=== PATIENT | male | born 1960 | race Caucasian/White ===

== ENCOUNTER 2017-09-10 11:06 | Inpatient (IN) | payer BC, OTHER ==
[~2017-09-10] VITALS: Ht 172.7 cm; Wt 67.2 kg
[~2017-09-10 11:06] MED LIST: ASPI325T17 PO; HYDR1TAB12 PO; OLME40TA12 PO
[2017-09-10 11:37] LABS: MICROSCOPIC INDICATED
[2017-09-10] MEDS ORDERED: CEFTRIAXONE PMX 1GM/50ML 50 ML ONE (12:27)
[2017-09-10] MEDS ORDERED: CEFTRIAXONE PMX 1GM/50ML 50 ML IVPB ONE (12:30)
[2017-09-10] MEDS ORDERED: SODIUM CHLORIDE FLUSH 10ML SYR IVF ONE (12:30)
[2017-09-10] MEDS ORDERED: SODIUM CHLORIDE 0.9% 1,000ML IV ONE (12:30)
[2017-09-10 12:39] LABS: ALBUMIN 2.9 g/dL (3.4-5.0); ANION GAP 9 mmol/L (5-15); CALCIUM 8.8 mg/dL (8.5-10.1); CHLORIDE 98 mmol/L (98-107); CREATININE 4.42 mg/dL (0.7-1.3)
[2017-09-10 12:52] LABS: MD YES; MEAN CORPUSCULAR HEMOGLOBIN 29.8 pg (27.5-34.5); MEAN CORPUSCULAR HGB CONC 32.9 g/dL (33.2-36.2); MEAN CORPUSCULAR VOLUME 90.6 fL (81-97); MEAN PLATELET VOLUME 10.5 fL (7.4-10.4); PLATELET COUNT 72 x10^3/uL (130-400); RED BLOOD COUNT 4.48 x10^6/uL (4.38-5.82); RED CELL DISTRIBUTION WIDTH 15.4 % (9.4-14.8)
[2017-09-10 12:54] LABS: <PLATELET ESTIMATE> DECREASED; ANISOCYTOSIS 1+; BAND#(MANUAL) 0.47 x10^3/uL; BANDS%(MANUAL) 3 % (0-7); LARGE PLATELETS 1+; LYMPH#(MANUAL) 0.32 x10^3/uL (1-3.4); LYMPHS% (MANUAL) 2 % (22-44); MONOS#(MANUAL) 0.32 x10^3/uL (0.3-2.7); MONOS% (MANUAL) 2 % (2-9); SEG#(MANUAL) 14.69 x10^3/uL (1.8-6.8); SEGS% (MANUAL) 93 % (42-75)
[2017-09-10] MEDS ORDERED: SODIUM CHLORIDE 0.9% 1,000 ML IV ONE ×2 (13:15→13:18)
[2017-09-10] MEDS ORDERED: LORazepam 2 MG/ML, 1ML ONE (13:18)
[2017-09-10] MEDS ORDERED: SODIUM CHLORIDE FLUSH 10ML SYR IVF PRN (13:30)
[2017-09-10] MEDS ORDERED: LORazepam 2 MG/ML, 1ML IVPush ONE (13:30)
[2017-09-10] MEDS ORDERED: MIDAZOLAM 1 MG/ML, 2ML ONE (13:43)
[2017-09-10] MEDS ORDERED: FENTANYL PF 250 MCG/5ML ONE (13:43)
[2017-09-10] MEDS ORDERED: PROPOFOL 10 MG/ML, 20ML ONE (13:44)
[2017-09-10] MEDS ORDERED: LIDOCAINE-MPF 2% ,5ML ONE (13:44)
[2017-09-10] MEDS ORDERED: SUCCINYLCHOLINE 20 MG/ML, 10ML ONE (13:45)
[2017-09-10] MEDS ORDERED: HYDROmorphone 2 MG/ML, 1ML ONE (13:57)
[2017-09-10] MEDS ORDERED: DOCUSATE 100 MG CAPSULE PO PRN (14:00)
[2017-09-10] MEDS ORDERED: FENTANYL PF 100 MCG/2ML IV PRN (14:00)
[2017-09-10] MEDS ORDERED: PROMETHAZINE 25 MG/ML, 1ML IV PRN (14:00)
[2017-09-10] MEDS ORDERED: hydrALAzine 20 MG/ML, 1ML IV PRN ×2 (14:00)
[2017-09-10] MEDS ORDERED: HYDROmorphone 1 MG/ML, 1ML IV PRN (14:00)
[2017-09-10] MEDS ORDERED: OXYcodone 5 MG/5 ML ORAL.SOL UDC PO PRN (14:00)
[2017-09-10] MEDS ORDERED: ONDANSETRON ODT 4 MG PO PRN (14:00)
[2017-09-10] MEDS ORDERED: POLYETHYLENE GLYCOL 17 GM PACKET PO PRN (14:00)
[2017-09-10] MEDS ORDERED: morphine SULFATE 10 MG/ML, 1ML IVPush PRN (14:00)
[2017-09-10] MEDS ORDERED: ONDANSETRON 2MG/ML, 2ML IVPush PRN ×2 (14:00)
[2017-09-10] MEDS ORDERED: ACETAMINOPHEN 325 MG TABLET PO PRN ×2 (14:00)
[2017-09-10] MEDS ORDERED: MEPERIDINE/PF 25MG/0.5ML IVPush PRN (14:00)
[2017-09-10] MEDS ORDERED: MIDAZOLAM 1 MG/ML, 2ML IV PRN (14:00)
[2017-09-10] MEDS ORDERED: LABETALOL 5MG/ML, 20ML IV PRN (14:00)
[2017-09-10] MEDS ORDERED: PHENYLEPHRINE 10 MG/ML ONE (14:17)
[2017-09-10] MEDS ORDERED: ONDANSETRON 2MG/ML, 2ML ONE (14:32)
[2017-09-10] MEDS ORDERED: DEXAMETHASONE 4 MG/ML, 1ML ONE (14:32)
[2017-09-10] MEDS ORDERED: OMNIPAQUE 350 MG/ML, 50 ML BOTTLE IV ONE (14:44)
[2017-09-10] MEDS ORDERED: LIDOCAINE GEL 2%, 5ML TP ONE (14:46)
[2017-09-10] MEDS ORDERED: OMNIPAQUE 350 MG/ML, 50 ML BOTTLE ONE (14:58)
[2017-09-10] MEDS ORDERED: EPHEDRINE 50 MG/ML, 1ML ONE (15:23)
[2017-09-10] MEDS ORDERED: EPHEDRINE 50 MG/ML, 1ML IVPush PRN (15:30)
[2017-09-10] MEDS ORDERED: LISI30TA4 PO (15:38)
[2017-09-10] MEDS ORDERED: ACETAMINOPHEN 650 MG/20.3 ML UDC ONE (15:50)
[2017-09-10] MEDS ORDERED: OXYcodone 5 MG/5 ML ORAL.SOL UDC ONE (15:51)
[2017-09-10 17:42] VITALS: BP 110/71
[2017-09-10] MEDS ORDERED: HYDROcodone/APAP 5/325 TABLET PO PRN (18:00)
[2017-09-10] MEDS: SODIUM CHLORIDE 0.9% 1,000 ML IV SCH (18:39)
[2017-09-10 23:06] VITALS: BP 106/68
[2017-09-11] MEDS: SODIUM CHLORIDE 0.9% 1,000 ML IV SCH ×4 (01:20→20:38)
[2017-09-11 03:36] VITALS: BP 105/77
[2017-09-11 05:24] LABS: MEAN CORPUSCULAR HEMOGLOBIN 30.1 pg (27.5-34.5); MEAN CORPUSCULAR HGB CONC 32.9 g/dL (33.2-36.2); MEAN CORPUSCULAR VOLUME 91.3 fL (81-97); RED BLOOD COUNT 3.52 x10^6/uL (4.38-5.82); RED CELL DISTRIBUTION WIDTH 15.7 % (9.4-14.8)
[2017-09-11 05:31] LABS: ANION GAP 7 mmol/L (5-15); CALCIUM 7.3 mg/dL (8.5-10.1); CHLORIDE 108 mmol/L (98-107)
[2017-09-11 05:32] LABS: CREATININE 3.67 mg/dL (0.7-1.3)
[2017-09-11 06:00] LABS: MEAN PLATELET VOLUME 11.1 fL (7.4-10.4); PLATELET COUNT 63 x10^3/uL (130-400)
[2017-09-11 06:02] LABS: BASOPHILS % (AUTO) 0 % (0-1); EOSINOPHILS % (AUTO) 0 % (1-7); LYMPHOCYTES # (AUTO) 0.33 x10^3/uL (1-3.4); LYMPHOCYTES % (AUTO) 2 % (22-44); MD SCAN; MONOCYTES # (AUTO) 0.47 x10^3/uL (0.2-0.8); MONOCYTES % (AUTO) 4 % (2-9); NEUTROPHILS # (AUTO) 12.78 x10^3/uL (1.8-6.8); NEUTROPHILS % (AUTO) 94 % (42-75)
[2017-09-11 06:35] VITALS: BP 122/80
[2017-09-11] MEDS ORDERED: SODIUM POLYSTYRENE SULFONATE ORAL SUSP PO ONE (09:00)
[2017-09-11] MEDS: CEFTRIAXONE PMX 1GM/50ML 50 ML IV SCH (12:46)
[2017-09-11 14:08] VITALS: BP 124/79
[2017-09-11] MEDS: HYDROcodone/APAP 5/325 TABLET PO PRN ×2 (14:31→20:38)
[2017-09-11 19:03] VITALS: BP 126/82
[2017-09-12 00:18] VITALS: BP 154/92
[2017-09-12] MEDS: HYDROcodone/APAP 5/325 TABLET PO PRN ×4 (01:59→20:06)
[2017-09-12] MEDS: SODIUM CHLORIDE 0.9% 1,000 ML IV SCH ×3 (04:00→22:15)
[2017-09-12 05:32] LABS: MEAN CORPUSCULAR HEMOGLOBIN 30.3 pg (27.5-34.5); MEAN CORPUSCULAR HGB CONC 33.4 g/dL (33.2-36.2); MEAN CORPUSCULAR VOLUME 90.7 fL (81-97); MEAN PLATELET VOLUME 11.2 fL (7.4-10.4); PLATELET COUNT 70 x10^3/uL (130-400); RED BLOOD COUNT 3.45 x10^6/uL (4.38-5.82); RED CELL DISTRIBUTION WIDTH 16.4 % (9.4-14.8)
[2017-09-12 05:35] LABS: CHLORIDE 114 mmol/L (98-107)
[2017-09-12 05:48] LABS: ALANINE AMINOTRANSFERASE 17 U/L (12-78); ALBUMIN 1.9 g/dL (3.4-5.0); ALKALINE PHOSPHATASE 98 U/L (45-117); ANION GAP 7 mmol/L (5-15); BILIRUBIN,TOTAL 0.3 mg/dL (0.2-1.0); CALCIUM 7.5 mg/dL (8.5-10.1); CREATININE 2.56 mg/dL (0.7-1.3); TOTAL PROTEIN 5.2 g/dL (6.4-8.2)
[2017-09-12 06:38] LABS: BASOPHILS % (AUTO) 0 % (0-1); EOSINOPHILS # (AUTO) 0.01 x10^3/uL (0-0.4); EOSINOPHILS % (AUTO) 0 % (1-7); LYMPHOCYTES # (AUTO) 0.68 x10^3/uL (1-3.4); LYMPHOCYTES % (AUTO) 5 % (22-44); MD SCAN; MONOCYTES # (AUTO) 0.65 x10^3/uL (0.2-0.8); MONOCYTES % (AUTO) 4 % (2-9); NEUTROPHILS # (AUTO) 13.54 x10^3/uL (1.8-6.8); NEUTROPHILS % (AUTO) 91 % (42-75)
[2017-09-12 07:18] VITALS: BP 134/79
[2017-09-12] MEDS: CEFTRIAXONE PMX 1GM/50ML 50 ML IV SCH (12:54)
[2017-09-12 13:42] VITALS: BP 151/91
[2017-09-12 18:45] VITALS: BP 156/84
[2017-09-13] MEDS: HYDROcodone/APAP 5/325 TABLET PO PRN ×3 (00:57→10:56)
[2017-09-13 01:06] VITALS: BP 163/89
[2017-09-13] MEDS: SODIUM CHLORIDE 0.9% 1,000 ML IV SCH ×2 (04:36→10:57)
[2017-09-13 05:12] LABS: CHLORIDE 113 mmol/L (98-107)
[2017-09-13 05:14] LABS: BASOPHILS % (AUTO) 0 % (0-1); EOSINOPHILS # (AUTO) 0.02 x10^3/uL (0-0.4); EOSINOPHILS % (AUTO) 0 % (1-7); LYMPHOCYTES # (AUTO) 0.58 x10^3/uL (1-3.4); LYMPHOCYTES % (AUTO) 6 % (22-44); MD NO; MEAN CORPUSCULAR HEMOGLOBIN 30.4 pg (27.5-34.5); MEAN CORPUSCULAR HGB CONC 33.9 g/dL (33.2-36.2); MEAN CORPUSCULAR VOLUME 89.6 fL (81-97); MEAN PLATELET VOLUME 10.1 fL (7.4-10.4); MONOCYTES # (AUTO) 0.87 x10^3/uL (0.2-0.8); MONOCYTES % (AUTO) 8 % (2-9); NEUTROPHILS # (AUTO) 8.87 x10^3/uL (1.8-6.8); NEUTROPHILS % (AUTO) 86 % (42-75); PLATELET COUNT 102 x10^3/uL (130-400); RED BLOOD COUNT 3.26 x10^6/uL (4.38-5.82); RED CELL DISTRIBUTION WIDTH 15.9 % (9.4-14.8)
[2017-09-13 05:18] LABS: ANION GAP 8 mmol/L (5-15); CALCIUM 7.4 mg/dL (8.5-10.1); CREATININE 1.99 mg/dL (0.7-1.3)
[2017-09-13 06:35] VITALS: BP 148/86
[2017-09-13] MEDS ORDERED: CIPR500T3 PO (11:36)
[2017-09-13] MEDS: CEFTRIAXONE PMX 1GM/50ML 50 ML IV SCH (11:46)
[2017-09-13 13:25] VITALS: BP 143/89
== END 2017-09-13 14:44 | disposition home or self-care (01) | DRG 693 ==
LOC: ED 13:17 → EDIP 13:18 → ED 13:26 → 4NOR 16:53
PROVIDERS: ADMIT Family Medicine; ATTEND Family Medicine
PROC: BT1F1ZZ Fluoroscopy of Left Kidney, Ureter and Bladder using Low Osmolar Contrast (ICD-10-PCS; 2017-09-10)
PROC: 0TCB8ZZ Extirpation of Matter from Bladder, Via Natural or Artificial Opening Endoscopic (ICD-10-PCS; 2017-09-10)
PROC: 0T778DZ Dilation of Left Ureter with Intraluminal Device, Via Natural or Artificial Opening Endoscopic (ICD-10-PCS; principal; 2017-09-10 14:00)
DX: N20.1 Calculus of ureter (principal); N17.0 Acute kidney failure with tubular necrosis; E44.0 Moderate protein-calorie malnutrition; D69.6 Thrombocytopenia, unspecified; E87.1 Hypo-osmolality and hyponatremia; N39.0 Urinary tract infection, site not specified; D64.9 Anemia, unspecified; K76.0 Fatty (change of) liver, not elsewhere classified; Z68.22 Body mass index [BMI] 22.0-22.9, adult; Z91.012 Allergy to eggs; Z91.018 Allergy to other foods; Z91.010 Allergy to peanuts; Z88.0 Allergy status to penicillin; I10 Essential (primary) hypertension; N40.0 Benign prostatic hyperplasia without lower urinary tract symptoms; R31.0 Gross hematuria; Z86.73 Personal history of transient ischemic attack (TIA), and cerebral infarction without residual deficits; Z87.442 Personal history of urinary calculi; F17.200 Nicotine dependence, unspecified, uncomplicated
CPT/HCPCS: 36415; 74176; 74420; 80048; 80053; 81001; 82040; 84132; 85025; 87040; 87077; 87086; 87186; 88300; 93005; 96365; 96375; J0696; J1100; J2250; J2405; J2704; J3010; J3490; Q9967; C1758; C2617; J0330; J2060; J2370; J7030

== ENCOUNTER 2017-10-07 06:32 | Day surgery (SDC) | payer BC ==
[~2017-10-07] VITALS: Ht 174 cm; Wt 62.8 kg
[~2017-10-07 06:32] MED LIST changes: +CIPR500T3 PO; +LISI30TA4 PO
[2017-10-07] MEDS ORDERED: LACTATED RINGERS 1,000 ML IV SCH (07:19)
[2017-10-07 07:20] VITALS: BP 164/107
[2017-10-07 07:48] VITALS: BP 115/75
[2017-10-07 07:53] LABS: BASOPHILS # (AUTO) 0.06 x10^3/uL (0-0.1); BASOPHILS % (AUTO) 1 % (0-1); EOSINOPHILS # (AUTO) 0.49 x10^3/uL (0-0.4); EOSINOPHILS % (AUTO) 7 % (1-7); LYMPHOCYTES # (AUTO) 1.39 x10^3/uL (1-3.4); LYMPHOCYTES % (AUTO) 20 % (22-44); MD NO; MEAN CORPUSCULAR HEMOGLOBIN 29.3 pg (27.5-34.5); MEAN CORPUSCULAR HGB CONC 33.9 g/dL (33.2-36.2); MEAN CORPUSCULAR VOLUME 86.3 fL (81-97); MEAN PLATELET VOLUME 8.7 fL (7.4-10.4); MONOCYTES # (AUTO) 0.66 x10^3/uL (0.2-0.8); MONOCYTES % (AUTO) 9 % (2-9); NEUTROPHILS # (AUTO) 4.52 x10^3/uL (1.8-6.8); NEUTROPHILS % (AUTO) 64 % (42-75); PLATELET COUNT 281 x10^3/uL (130-400); RED BLOOD COUNT 4.03 x10^6/uL (4.38-5.82); RED CELL DISTRIBUTION WIDTH 15.1 % (9.4-14.8)
[2017-10-07] MEDS ORDERED: NONE PER PATIENT (07:55)
[2017-10-07 07:59] LABS: ALANINE AMINOTRANSFERASE 20 U/L (12-78); ALBUMIN 3.4 g/dL (3.4-5.0); ANION GAP 6 mmol/L (5-15); CALCIUM 8.8 mg/dL (8.5-10.1); CHLORIDE 104 mmol/L (98-107); CREATININE 1.46 mg/dL (0.7-1.3)
[2017-10-07 08:01] LABS: ALKALINE PHOSPHATASE 99 U/L (45-117); BILIRUBIN,TOTAL 0.3 mg/dL (0.2-1.0); TOTAL PROTEIN 8.6 g/dL (6.4-8.2)
[2017-10-07] MEDS ORDERED: PROPOFOL 10 MG/ML, 20ML ONE ×2 (08:38)
[2017-10-07] MEDS ORDERED: LIDOCAINE-MPF 2% ,5ML ONE (08:38)
[2017-10-07] MEDS ORDERED: ONDANSETRON 2MG/ML, 2ML ONE (08:39)
[2017-10-07] MEDS ORDERED: DEXAMETHASONE 4 MG/ML, 1ML ONE ×2 (08:39)
[2017-10-07 08:44] LABS: MICROSCOPIC INDICATED
[2017-10-07 08:45] LABS: CULTURE INDICATED? YES
[2017-10-07] MEDS ORDERED: CEFAZOLIN 1,000 MG ONE ×2 (09:13)
[2017-10-07] MEDS ORDERED: FENTANYL PF 100 MCG/2ML ONE ×2 (09:18→10:09)
[2017-10-07] MEDS ORDERED: EPHEDRINE 50 MG/ML, 1ML ONE (09:27)
[2017-10-07] MEDS ORDERED: ACETAMINOPHEN 650 MG/20.3 ML UDC ONE (10:09)
[2017-10-07] MEDS ORDERED: OXYcodone 5 MG/5 ML ORAL.SOL UDC ONE (10:09)
[2017-10-07] MEDS: FENTANYL PF 100 MCG/2ML IV PRN ×3 (10:11→10:24)
[2017-10-07] MEDS ORDERED: PHENAZOPYRIDINE 200 MG TABLET ONE (10:27)
[2017-10-07] MEDS ORDERED: HYDROcodone/APAP 7.5-325MG/15ML UDC PO PRN (10:30)
[2017-10-07] MEDS ORDERED: ONDANSETRON 2MG/ML, 2ML IVPush PRN (10:30)
[2017-10-07] MEDS ORDERED: PHENAZOPYRIDINE 200 MG TABLET PO ONE (10:30)
[2017-10-07] MEDS ORDERED: ACETAMINOPHEN 325 MG TABLET PO PRN (10:30)
[2017-10-07] MEDS ORDERED: MEPERIDINE/PF 25MG/0.5ML IVPush PRN (10:30)
[2017-10-07] MEDS ORDERED: morphine SULFATE 10 MG/ML, 1ML IV PRN (10:30)
[2017-10-07] MEDS ORDERED: OXYcodone 5 MG/5 ML ORAL.SOL UDC PO PRN (10:30)
== END 2017-10-07 12:15 ==
LOC: OUT 06:32
PROVIDERS: ATTEND Urology
DX: N20.1 Calculus of ureter (principal); I10 Essential (primary) hypertension; Z86.73 Personal history of transient ischemic attack (TIA), and cerebral infarction without residual deficits; Z87.891 Personal history of nicotine dependence
CPT/HCPCS: 36415; 52353; 74018; 76000; 80053; 81001; 82360; 85025; 87077; 87086; 87186; 88300; C1758; J0690; J1100; J2405; J2704; J3010; J3490